=== PATIENT | female | born 1935 | race Caucasian/White ===

== ENCOUNTER → 2019-05-30 09:27 | Outpatient (CLI) | payer MEDICARE, OTHER ==
--- NOTE | 2019-06-02 11:14 | ST ---
PATIENT:PARAMJIT GIBBONS MEDICAL RECORD: [id number] SEX: F LOCATION:[facility] ORDER #: ADMISSION DATE: 05/30/19 AGE OF PATIENT: 84 REFERRING PHYSICIAN: INTERPRETING PHYSICIAN: HUMBERTO CUETO MD DATE OF SERVICE: 05/30/2019 PROCEDURE: Nuclear stress test. INDICATION: Shortness of breath, hypertension. She was exercised on standard Lexiscan protocol with 32 mCi of sestamibi injected at peak stress, 11 mCi used previously for rest images. FINDINGS: Gated SPECT reveals preserved ejection fraction at 68% with good wall motion and thickening and brightening throughout all segments. SPECT imaging Cardiolite was used as myocardial fusion agent. There is homogeneous uptake throughout all segments at rest and stress with no evidence of inducible ischemia or previous infarction. OVERALL IMPRESSION: 1. This is a normal nuclear stress test with no evidence of inducible ischemia or previous infarction. 2. Gated SPECT reveals a preserved ejection fraction at 68%. In this patient with ongoing symptomatology, the current scan does not suggest the presence of hemodynamically significant coronary artery disease. Evaluate noncardiac etiology of chest pain. TRANSINT:[id number] Voice Confirmation ID: [id number] DOCUMENT ID: [id number] HUMBERTO CUETO MD at 1114 CC: LUNA ALVARES [id number] DICTATION DATE: 05/31/19 1004 UI LEAD DEVELOPER: 05/31/19 1028 DEP CLI 05/30/19 [facility] [address] [place] [address]
== END | disposition home or self-care (01) ==
LOC: D.HCCARDIO 09:27
PROVIDERS: ATTEND Internal Medicine Interventional Cardiology
DX: R06.09 Other forms of dyspnea (principal)